=== PATIENT | female | born 1975 | race Caucasian/White ===

== ENCOUNTER 2017-09-15 11:59 | Inpatient (IN) | payer MEDICAID ==
[2017-09-15] MEDS ORDERED: Sodium Chloride 0.9% 10 ML Syringe FLUSH PRN (12:30)
[2017-09-15] MEDS ORDERED: Sodium Chloride 0.9% 1,000 ML IV ONE ×2 (12:30→13:54)
--- NOTE | 2017-09-15 12:45 | EDM.PDOC ---
ED HPI GENERAL MEDICAL PROBLEM - General Chief Complaint: Chest Pain Stated Complaint: DIZZY/CHEST PAIN Time Seen by Provider: 09/15/17 12:22 Source of Information: Reports: Patient History Limitations: Reports: No Limitations - History of Present Illness INITIAL COMMENTS - FREE TEXT/NARRATIVE: 41-year-old female presents for evaluation and treatment of chest pain and shortness of breath. Patient reports her symptoms have been present for the last 2 days. She appreciates that they worsen with movement. Currently at rest she states her pain is now 1 out of 10. Is located in the center of her chest. No radiation up into her neck and into her back. She states that she has a hard time breathing. That also seems to be worse with movement. She also reports a cough but no hemoptysis. She has appreciated some cramping in her calves recently. She also feels dizzy and lightheaded but has not had any syncopal episodes. In addition she also has felt feverish but has not taken her temperature she's had headaches feeling nauseous and has vomited. No vomiting today. Patient in the ICU at [facility] in the ICU 2 weeks ago with what sounds be urosepsis due to kidney stone. She is managed by Dr. Burciaga. She is not currently on any antibiotics. She states she did have surgery to break up the stone but reports they were unsure if they've removed the stone completely. She does have some back pain and some flank pain. She did see Dr. Kirby about one week ago for hospitalization follow-up. Patient is not on any blood thinners. Patient denies any cardiac history. Chest Pain Score (Numeric/FACES): 10 - Related Data Allergies Allergy/AdvReac Type Severity Reaction Status Date / Time Penicillins Allergy Anaphylactic Verified 09/15/17 16:38 Shock Home Meds: Home Meds FLUoxetine HCl [Fluoxetine HCl] 60 mg PO DAILY 09/15/17 [History] busPIRone [Buspar] 10 mg PO 09/15/17 [History] hydrOXYzine HCl [Atarax] 25 mg PO DAILY 09/15/17 [History] Past Medical History - Past Health History Medical/Surgical History: Denies Medical/Surgical History Other HEENT History: wears glasses and contacts Cardiovascular History: Reports: Heart Murmur Gastrointestinal History: Reports: None Genitourinary History: Reports: Renal Calculus 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: Reports: Musculoskeletal History: Reports: RA Neurological History: Reports: Migraines Psychiatric History: Reports: Addiction, Anxiety, Depression - Past Surgical History HEENT Surgical History: Reports: Tonsillectomy Cardiovascular Surgical History: Reports: None Female Surgical History: Reports: Kidney stone extraction Musculoskeletal Surgical History: Reports: None Social & Family History - Family History Family Medical History: Noncontributory - Tobacco Use Smoking Status *Q: Never Smoker Years of Tobacco use: 15 Packs/Tins Daily: 1 - Caffeine Use Caffeine Use: Reports: Soda - Alcohol Use Days Per Week of Alcohol Use: 7 Number of Drinks Per Day: 2 Total Drinks Per Week: 14 - Recreational Drug Use Recreational Drug Use: No ED ROS GENERAL - Review of Systems Review Of Systems: See Below Constitutional: Reports: Fever, Chills Respiratory: Reports: Shortness of Breath Cardiovascular: Reports: Chest Pain GI/Abdominal: Reports: Nausea, Vomiting Musculoskeletal: Denies: Neck Pain, Back Pain Neurological: Reports: Headache. Denies: Syncope ED EXAM, GENERAL - Physical Exam Exam: See Below Exam Limited By: No Limitations General Appearance: Alert, WD/WN, No Apparent Distress Eye Exam: Bilateral Eye: Normal Inspection Ears: Normal External Exam Nose: Normal Inspection Throat/Mouth: Normal Inspection, Normal Voice, No Airway Compromise Respiratory/Chest: No Respiratory Distress, Lungs Clear, Normal Breath Sounds Cardiovascular: Normal Peripheral Pulses, Regular Rate, Rhythm, No Murmur GI/Abdominal: Normal Bowel Sounds, Soft, Non-Tender Neurological: Alert, Oriented, Normal Cognition Psychiatric: Normal Affect, Normal Mood Skin Exam: Warm, Dry, Normal Color EKG INTERPRETATION EKG Date: 09/15/17 Time: 12:10 Rhythm: NSR Rate (Beats/Min): 97 [place]: Normal P-Wave: Present QRS: Normal ST-T: Depressed (slight, AVF and anterior leads) QT: Prolonged (QTc 590) EKG Interpretation Comments: Normal sinus rhythm at [address] depression in aVF in the anterior leads. Prolonged QT at QTC 590. Reviewed by myself and Dr. Lackey. Course - Vital Signs Last Recorded V/S: Last Vital Signs Temp 37.0 C 09/15/17 16:59 Pulse 78 09/15/17 16:59 Resp 14 09/15/17 16:59 BP 103/73 09/15/17 16:59 Pulse Ox 100 09/15/17 16:59 - Orders/Labs/Meds Orders: Active Orders 24 hr Category Date Time Status Cardiac Monitoring [RC] . DIRECTED Care 09/15/17 12:30 Active CULTURE BLOOD [BC] Stat Lab 09/15/17 12:50 Received CULTURE BLOOD [BC] Stat Lab 09/15/17 13:00 Received CULTURE URINE [RM] Stat Lab 09/15/17 13:20 Ordered UA W/MICROSCOPIC [URIN] Stat Lab 09/15/17 13:20 Ordered Sodium Chloride 0.9% [Saline Flush] Med 09/15/17 12:30 Active 10 ml FLUSH ASDIRECTED PRN Blood Culture x2 Reflex Set [OM.PC] Stat Oth 09/15/17 12:30 Ordered Peripheral IV Insertion Adult [OM.PC] Routine Oth 09/15/17 12:29 Ordered EKG 12 Lead [EK] Stat Ther 09/15/17 12:30 Ordered Medication Orders Acetaminophen (Tylenol) 650 mg PO Q4H PRN PRN Reason: Pain (Mild 1-3)/fever Hydrocodone Bitart/Acetaminophen ([place] 325-5 Mg) 1 tab PO Q4H PRN PRN Reason: Pain (moderate 4-6) Albuterol/Ipratropium (Duoneb 3.0-0.5 Mg/3 Ml) 3 ml NEB Q4H PRN PRN Reason: Shortness Of Breath/wheezing Fluoxetine HCl (Prozac) 60 mg PO DAILY [facility] Hydralazine HCl (Apresoline) 20 mg IVPUSH Q4H PRN PRN Reason: Hypertension Hydromorphone HCl (Dilaudid) 0.25 mg IVPUSH Q2H PRN PRN Reason: Pain (severe 7-10) Hydroxyzine HCl (Atarax) 25 mg PO DAILY U[facility] Promethazine HCl 12.5 mg/ (Sodium Chloride) 50.5 mls @ 100 mls/hr IV Q6H PRN PRN Reason: Nausea/Vomiting Sodium Chloride (Normal Saline) 500 mls @ 50 mls/hr IV ONETIME ONE Stop: 09/16/17 06:50 Last Admin: 09/15/17 21:07 Dose: 50 mls/hr Sodium Chloride (Normal Saline) 1,000 mls @ 100 mls/hr IV ASDIRECTED UMER Lorazepam (Ativan) 2 mg IVPUSH Q4H PRN PRN Reason: Seizures Lorazepam (Ativan) 1 mg IV Q6H PRN PRN Reason: Anxiety Magnesium Sulfate (Pharmacy To Dose - Magnesium Replacement) 1 dose .XX ASDIRECTED [facility] Metoprolol Tartrate (Lopressor) 5 mg IVPUSH Q4H PRN PRN Reason: Tachycardia Ondansetron HCl (Zofran) 4 mg IV Q6H PRN PRN Reason: Nausea/Vomiting Potassium Chloride (Pharmacy To Dose - Potassium Replacement) 1 dose .XX ASDIRECTED [facility] Sodium Chloride (Saline Flush) 10 ml FLUSH ASDIRECTED PRN PRN Reason: Keep Vein Open Last Admin: 09/15/17 12:45 Dose: 10 ml Temazepam (Restoril) 7.5 mg PO BEDTIME PRN PRN Reason: Sleep Labs: Laboratory Tests 09/15/17 09/15/17 09/15/17 Range/Units 12:20 12:20 12:20 WBC 10.87 H (3.98-10.04) K/mm3 RBC 4.66 (3.98-5.22) M/mm3 Hgb 14.5 (11.2-15.7) gm/L Hct 42.1 (34.1-44.9) % MCV 90.3 (79.4-94.8) fl MCH 31.1 (25.6-32.2) pg MCHC 34.4 (32.2-35.5) g/dl RDW Std Deviation 47.8 H (36.4-46.3) fL Plt Count 521 H (182-369) K/mm3 MPV 9.3 L (9.4-12.3) fl Neutrophils % (Manual) 66 H (40-60) % Band Neutrophils % 0 (0-10) % Lymphocytes % (Manual) 31 (20-40) % Atypical Lymphs % 0 % Monocytes % (Manual) 3 (2-10) % Eosinophils % (Manual) 0 L (0.7-5.8) % Basophils % (Manual) 0 L (0.1-1.2) Platelet Estimate See note RBC Morph Comment Normal PT 11.0 (9.5-12.1) SECONDS INR 1.01 APTT 26 (24-31) SECONDS D-Dimer, Quantitative (0.19-0.50) mg/L Sodium 131 L (136-145) mEq/L Potassium 2.3 L* (3.5-5.1) mEq/L Chloride 84 L (98-107) mEq/L Carbon Dioxide 38 H (21-32) mEq/L Anion Gap 11.3 (5-15) BUN 12 (7-18) mg/dL Creatinine 1.5 H (0.55-1.02) mg/dL Est Cr Clr Drug Dosing 36.87 mL/min Estimated GFR (MDRD) 38 (>60) mL/min BUN/Creatinine Ratio 8.0 L (14-18) Glucose 150 H (74-106) mg/dL Lactic Acid (0.4-2.0) mmol/L Calcium 9.1 (8.5-10.1) mg/dL Magnesium (1.8-2.4) mg/dl Total Bilirubin 1.4 H (0.2-1.0) mg/dL AST 46 H (15-37) U/L ALT 21 (14-59) U/L Alkaline Phosphatase 166 H (46-116) U/L Troponin I < 0.017 (0.00-0.056) ng/mL C-Reactive Protein (<1.0) mg/dL Total Protein 8.2 (6.4-8.2) g/dl Albumin 3.8 (3.4-5.0) g/dl Globulin 4.4 gm/dL Albumin/Globulin Ratio 0.9 L (1-2) Lipase 101 (73-393) U/L HCG, Quant mIU/mL Urine Color (Yellow) Urine Appearance (Clear) Urine pH (5.0-8.0) Ur Specific [place] (1.005-1.030) Urine Protein (Negative) Urine Glucose (UA) (Negative) Urine Ketones (Negative) Urine Occult Blood (Negative) Urine Nitrite (Negative) Urine Bilirubin (Negative) Urine Urobilinogen (0.2-1.0) Ur Leukocyte Esterase (Negative) Urine RBC (0-5) /hpf Urine WBC (0-5) /hpf Ur Epithelial Cells (0-5) /hpf Urine Bacteria (FEW) /hpf Hyaline Casts (0-5) /lpf Urine Mucus (FEW) /hpf Urine HCG, Qual Urine Opiates Screen (NEGATIVE) Ur Buprenorphine Scrn (NEGATIVE) Ur Oxycodone Screen (NEGATIVE) Urine Methadone Screen (NEGATIVE) Ur Propoxyphene Screen (NEGATIVE) Ur Barbiturates Screen (NEGATIVE) Ur Tricyclics Screen (NEGATIVE) Ur Phencyclidine Scrn (NEGATIVE) Ur Amphetamine Screen (NEGATIVE) U Methamphetamines Scrn (NEGATIVE) U Benzodiazepines Scrn (NEGATIVE) U Cocaine Metab Screen (NEGATIVE) U Marijuana (THC) Screen (NEGATIVE) 09/15/17 09/15/17 09/15/17 Range/Units 12:20 12:20 12:20 WBC (3.98-10.04) K/mm3 RBC (3.98-5.22) M/mm3 Hgb (11.2-15.7) gm/L Hct (34.1-44.9) % MCV (79.4-94.8) fl MCH (25.6-32.2) pg MCHC (32.2-35.5) g/dl RDW Std Deviation (36.4-46.3) fL Plt Count (182-369) K/mm3 MPV (9.4-12.3) fl Neutrophils % (Manual) (40-60) % Band Neutrophils % (0-10) % Lymphocytes % (Manual) (20-40) % Atypical Lymphs % % Monocytes % (Manual) (2-10) % Eosinophils % (Manual) (0.7-5.8) % Basophils % (Manual) (0.1-1.2) Platelet Estimate RBC Morph Comment PT (9.5-12.1) SECONDS INR APTT (24-31) SECONDS D-Dimer, Quantitative 0.33 (0.19-0.50) mg/L Sodium (136-145) mEq/L Potassium (3.5-5.1) mEq/L Chloride (98-107) mEq/L Carbon Dioxide (21-32) mEq/L Anion Gap (5-15) BUN (7-18) mg/dL Creatinine (0.55-1.02) mg/dL Est Cr Clr Drug Dosing mL/min Estimated GFR (MDRD) (>60) mL/min BUN/Creatinine Ratio (14-18) Glucose (74-106) mg/dL Lactic Acid (0.4-2.0) mmol/L Calcium (8.5-10.1) mg/dL Magnesium (1.8-2.4) mg/dl Total Bilirubin (0.2-1.0) mg/dL AST (15-37) U/L ALT (14-59) U/L Alkaline Phosphatase (46-116) U/L Troponin I (0.00-0.056) ng/mL C-Reactive Protein 0.8 (<1.0) mg/dL Total Protein (6.4-8.2) g/dl Albumin (3.4-5.0) g/dl Globulin gm/dL Albumin/Globulin Ratio (1-2) Lipase (73-393) U/L HCG, Quant 3.0 mIU/mL Urine Color (Yellow) Urine Appearance (Clear) Urine pH (5.0-8.0) Ur Specific [place] (1.005-1.030) Urine Protein (Negative) Urine Glucose (UA) (Negative) Urine Ketones (Negative) Urine Occult Blood (Negative) Urine Nitrite (Negative) Urine Bilirubin (Negative) Urine Urobilinogen (0.2-1.0) Ur Leukocyte Esterase (Negative) Urine RBC (0-5) /hpf Urine WBC (0-5) /hpf Ur Epithelial Cells (0-5) /hpf Urine Bacteria (FEW) /hpf Hyaline Casts (0-5) /lpf Urine Mucus (FEW) /hpf Urine HCG, Qual Urine Opiates Screen (NEGATIVE) Ur Buprenorphine Scrn (NEGATIVE) Ur Oxycodone Screen (NEGATIVE) Urine Methadone Screen (NEGATIVE) Ur Propoxyphene Screen (NEGATIVE) Ur Barbiturates Screen (NEGATIVE) Ur Tricyclics Screen (NEGATIVE) Ur Phencyclidine Scrn (NEGATIVE) Ur Amphetamine Screen (NEGATIVE) U Methamphetamines Scrn (NEGATIVE) U Benzodiazepines Scrn (NEGATIVE) U Cocaine Metab Screen (NEGATIVE) U Marijuana (THC) Screen (NEGATIVE) 09/15/17 09/15/17 09/15/17 Range/Units 12:47 12:50 13:20 WBC (3.98-10.04) K/mm3 RBC (3.98-5.22) M/mm3 Hgb (11.2-15.7) gm/L Hct (34.1-44.9) % MCV (79.4-94.8) fl MCH (25.6-32.2) pg MCHC (32.2-35.5) g/dl RDW Std Deviation (36.4-46.3) fL Plt Count (182-369) K/mm3 MPV (9.4-12.3) fl Neutrophils % (Manual) (40-60) % Band Neutrophils % (0-10) % Lymphocytes % (Manual) (20-40) % Atypical Lymphs % % Monocytes % (Manual) (2-10) % Eosinophils % (Manual) (0.7-5.8) % Basophils % (Manual) (0.1-1.2) Platelet Estimate RBC Morph Comment PT (9.5-12.1) SECONDS INR APTT (24-31) SECONDS D-Dimer, Quantitative (0.19-0.50) mg/L Sodium (136-145) mEq/L Potassium (3.5-5.1) mEq/L Chloride (98-107) mEq/L Carbon Dioxide (21-32) mEq/L Anion Gap (5-15) BUN (7-18) mg/dL Creatinine (0.55-1.02) mg/dL Est Cr Clr Drug Dosing mL/min Estimated GFR (MDRD) (>60) mL/min BUN/Creatinine Ratio (14-18) Glucose (74-106) mg/dL Lactic Acid 2.0 (0.4-2.0) mmol/L Calcium (8.5-10.1) mg/dL Magnesium 1.7 L (1.8-2.4) mg/dl Total Bilirubin (0.2-1.0) mg/dL AST (15-37) U/L ALT (14-59) U/L Alkaline Phosphatase (46-116) U/L Troponin I (0.00-0.056) ng/mL C-Reactive Protein (<1.0) mg/dL Total Protein (6.4-8.2) g/dl Albumin (3.4-5.0) g/dl Globulin gm/dL Albumin/Globulin Ratio (1-2) Lipase (73-393) U/L HCG, Quant mIU/mL Urine Color Dark yellow (Yellow) Urine Appearance Clear (Clear) Urine pH 8.0 (5.0-8.0) Ur Specific [place] 1.020 (1.005-1.030) Urine Protein 2+ H (Negative) Urine Glucose (UA) Negative (Negative) Urine Ketones Negative (Negative) Urine Occult Blood 3+ H (Negative) Urine Nitrite Negative (Negative) Urine Bilirubin Negative (Negative) Urine Urobilinogen 0.2 (0.2-1.0) Ur Leukocyte Esterase Trace H (Negative) Urine RBC 5-10 H (0-5) /hpf Urine WBC 0-5 (0-5) /hpf Ur Epithelial Cells 5-10 H (0-5) /hpf Urine Bacteria Few (FEW) /hpf Hyaline Casts 0-5 (0-5) /lpf Urine Mucus Few (FEW) /hpf Urine HCG, Qual Urine Opiates Screen (NEGATIVE) Ur Buprenorphine Scrn (NEGATIVE) Ur Oxycodone Screen (NEGATIVE) Urine Methadone Screen (NEGATIVE) Ur Propoxyphene Screen (NEGATIVE) Ur Barbiturates Screen (NEGATIVE) Ur Tricyclics Screen (NEGATIVE) Ur Phencyclidine Scrn (NEGATIVE) Ur Amphetamine Screen (NEGATIVE) U Methamphetamines Scrn (NEGATIVE) U Benzodiazepines Scrn (NEGATIVE) U Cocaine Metab Screen (NEGATIVE) U Marijuana (THC) Screen (NEGATIVE) 09/15/17 09/15/17 Range/Units 13:20 13:20 WBC (3.98-10.04) K/mm3 RBC (3.98-5.22) M/mm3 Hgb (11.2-15.7) gm/L Hct (34.1-44.9) % MCV (79.4-94.8) fl MCH (25.6-32.2) pg MCHC (32.2-35.5) g/dl RDW Std Deviation (36.4-46.3) fL Plt Count (182-369) K/mm3 MPV (9.4-12.3) fl Neutrophils % (Manual) (40-60) % Band Neutrophils % (0-10) % Lymphocytes % (Manual) (20-40) % Atypical Lymphs % % Monocytes % (Manual) (2-10) % Eosinophils % (Manual) (0.7-5.8) % Basophils % (Manual) (0.1-1.2) Platelet Estimate RBC Morph Comment PT (9.5-12.1) SECONDS INR APTT (24-31) SECONDS D-Dimer, Quantitative (0.19-0.50) mg/L Sodium (136-145) mEq/L Potassium (3.5-5.1) mEq/L Chloride (98-107) mEq/L Carbon Dioxide (21-32) mEq/L Anion Gap (5-15) BUN (7-18) mg/dL Creatinine (0.55-1.02) mg/dL Est Cr Clr Drug Dosing mL/min Estimated GFR (MDRD) (>60) mL/min BUN/Creatinine Ratio (14-18) Glucose (74-106) mg/dL Lactic Acid (0.4-2.0) mmol/L Calcium (8.5-10.1) mg/dL Magnesium (1.8-2.4) mg/dl Total Bilirubin (0.2-1.0) mg/dL AST (15-37) U/L ALT (14-59) U/L Alkaline Phosphatase (46-116) U/L Troponin I (0.00-0.056) ng/mL C-Reactive Protein (<1.0) mg/dL Total Protein (6.4-8.2) g/dl Albumin (3.4-5.0) g/dl Globulin gm/dL Albumin/Globulin Ratio (1-2) Lipase (73-393) U/L HCG, Quant mIU/mL Urine Color (Yellow) Urine Appearance (Clear) Urine pH (5.0-8.0) Ur Specific [place] (1.005-1.030) Urine Protein (Negative) Urine Glucose (UA) (Negative) Urine Ketones (Negative) Urine Occult Blood (Negative) Urine Nitrite (Negative) Urine Bilirubin (Negative) Urine Urobilinogen (0.2-1.0) Ur Leukocyte Esterase (Negative) Urine RBC (0-5) /hpf Urine WBC (0-5) /hpf Ur Epithelial Cells (0-5) /hpf Urine Bacteria (FEW) /hpf Hyaline Casts (0-5) /lpf Urine Mucus (FEW) /hpf Urine HCG, Qual Cancelled Urine Opiates Screen Negative (NEGATIVE) Ur Buprenorphine Scrn Negative (NEGATIVE) Ur Oxycodone Screen Negative (NEGATIVE) Urine Methadone Screen Negative (NEGATIVE) Ur Propoxyphene Screen Negative (NEGATIVE) Ur Barbiturates Screen Negative (NEGATIVE) Ur Tricyclics Screen Negative (NEGATIVE) Ur Phencyclidine Scrn Negative (NEGATIVE) Ur Amphetamine Screen Negative (NEGATIVE) U Methamphetamines Scrn Negative (NEGATIVE) U Benzodiazepines Scrn Presumptive positive H (NEGATIVE) U Cocaine Metab Screen Negative (NEGATIVE) U Marijuana (THC) Screen Negative (NEGATIVE) Meds: Medications Generic Name Dose Route Start Last Admin Trade Name Freq PRN Reason Stop Dose Admin Acetaminophen 650 mg 09/15/17 17:19 Tylenol PO Q4H PRN Pain (Mild 1-3)/fever Hydrocodone Bitart/Acetaminophen 1 tab 09/15/17 17:19 [place] 325-5 Mg PO Q4H PRN Pain (moderate 4-6) Albuterol/Ipratropium 3 ml 09/15/17 17:19 Duoneb 3.0-0.5 Mg/3 Ml NEB Q4H PRN Shortness Of Breath/wheezing Fluoxetine HCl 60 mg 09/16/17 09:00 Prozac PO DAILY [facility] Hydralazine HCl 20 mg 09/15/17 17:19 Apresoline IVPUSH Q4H PRN Hypertension Hydromorphone HCl 0.25 mg 09/15/17 17:19 Dilaudid IVPUSH Q2H PRN Pain (severe 7-10) Hydroxyzine HCl 25 mg 09/16/17 09:00 Atarax PO DAILY [facility] Promethazine HCl 12.5 mg/ 50.5 mls @ 100 mls/hr 09/15/17 17:19 Sodium Chloride IV Q6H PRN Nausea/Vomiting Sodium Chloride 500 mls @ 50 mls/hr 09/15/17 20:51 09/15/17 21:07 Normal Saline IV 09/16/17 06:50 50 mls/hr ONETIME ONE Administration Sodium Chloride 1,000 mls @ 100 mls/hr 09/16/17 07:00 Normal Saline IV ASDIRECTED [facility] Lorazepam 2 mg 09/15/17 17:19 Ativan IVPUSH Q4H PRN Seizures Lorazepam 1 mg 09/15/17 17:19 Ativan IV Q6H PRN Anxiety Magnesium Sulfate 1 dose 09/15/17 17:30 Pharmacy To Dose - Magnesium Replacement .XX ASDIRECTED [facility] Metoprolol Tartrate 5 mg 09/15/17 17:19 Lopressor IVPUSH Q4H PRN Tachycardia Ondansetron HCl 4 mg 09/15/17 17:19 Zofran IV Q6H PRN Nausea/Vomiting Potassium Chloride 1 dose 09/15/17 17:30 Pharmacy To Dose - Potassium Replacement .XX ASDIRECTED [facility] Sodium Chloride 10 ml 09/15/17 12:30 09/15/17 12:45 Saline Flush FLUSH 10 ml ASDIRECTED PRN Administration Keep Vein Open Temazepam 7.5 mg 09/15/17 17:19 Restoril PO BEDTIME PRN Sleep Discontinued Medications Generic Name Dose Route Start Last Admin Trade Name Freq PRN Reason Stop Dose Admin Sodium Chloride 1,000 mls @ 999 mls/hr 09/15/17 12:30 09/15/17 12:44 Normal Saline IV 09/15/17 13:30 999 mls/hr ONETIME ONE Administration Potassium Chloride 10 meq/ 100 mls @ 100 mls/hr 09/15/17 13:15 09/15/17 13:26 Premix IV 100 mls/hr ASDIRECTED [facility] Administration Sodium Chloride 1,000 mls @ 150 mls/hr 09/15/17 13:54 09/15/17 13:57 Normal Saline IV 09/15/17 20:33 150 mls/hr ONETIME ONE Administration Potassium Chloride 10 meq/ 100 mls @ 100 mls/hr 09/15/17 15:52 09/15/17 16:03 Premix IV 09/15/17 16:51 100 mls/hr NOW STA Administration Magnesium Sulfate 2 gm/ Premix 50 mls @ 25 mls/hr 09/15/17 16:34 09/15/17 18: 03 IV 09/15/17 18:33 25 mls/hr ONETIME ONE Administration Potassium Chloride 10 meq/ 100 mls @ 100 mls/hr 09/15/17 18:00 09/15/17 20:01 Premix IV 09/15/17 21:59 Not Given Q1H [facility] Potassium Chloride 10 meq/ 100 mls @ 100 mls/hr 09/15/17 20:00 09/15/17 23:24 Premix IV 09/15/17 23:59 100 mls/hr Q1H U[facility] Administration Potassium Chloride 40 meq 09/15/17 16:33 09/15/17 18:02 Klor-Con M20 PO 09/15/17 16:34 40 meq ONETIME ONE Administration Scopolamine 1.5 mg 09/15/17 17:24 09/15/17 20:00 Transderm-Scop TRDERM 09/15/17 17:25 Not Given Q72H ONE Scopolamine 1.5 mg 09/15/17 17:26 09/15/17 19:38 Transderm-Scop TOP 09/15/17 17:27 Not Given ONETIME ONE - Radiology Interpretation Free Text/Narrative:: Chest: Frontal view of the chest was obtained. Comparison: Prior chest x-ray of 12/13/14. Heart size and mediastinum are normal. Lungs are clear. Bony structures are unremarkable. Impression: 1. Nothing acute is seen on frontal chest x-ray. - Re-Assessments/Exams Free Text/Narrative Re-Assessment/Exam: 09/15/17 16:30 Patient's potassium is quite low at 2.3. She has received 10 mEq IV potassium and I did order her another 10 mEq. Given her prolonged QT in her low potassium and do not feel she is safe to go home. Discussed case with Dr. Perez, hospitalist talent acquisition specialist. He agrees to the admission. We'll admit for hypokalemia Departure - Departure Time of Disposition: 16:10 Disposition: Admitted As Inpatient 65 Condition: Fair Clinical Impression: Hypokalemia, Prolonged Q-T interval on ECG - My Orders Last 24 Hours: My Active Orders 09/15/17 12:29 Peripheral IV Insertion Adult [OM.PC] Routine 09/15/17 12:30 Cardiac Monitoring [RC] . DIRECTED Sodium Chloride 0.9% [Saline Flush] 10 ml FLUSH ASDIRECTED PRN Blood Culture x2 Reflex Set [OM.PC] Stat EKG 12 Lead [EK] Stat 09/15/17 12:50 CULTURE BLOOD [BC] Stat 09/15/17 13:00 CULTURE BLOOD [BC] Stat 09/15/17 13:20 CULTURE URINE [RM] Stat UA W/MICROSCOPIC [URIN] Stat - Assessment/Plan Last 24 Hours: My Active Orders 09/15/17 12:29 Peripheral IV Insertion Adult [OM.PC] Routine 09/15/17 12:30 Cardiac Monitoring [RC] . DIRECTED Sodium Chloride 0.9% [Saline Flush] 10 ml FLUSH ASDIRECTED PRN Blood Culture x2 Reflex Set [OM.PC] Stat EKG 12 Lead [EK] Stat 09/15/17 12:50 CULTURE BLOOD [BC] Stat 09/15/17 13:00 CULTURE BLOOD [BC] Stat 09/15/17 13:20 CULTURE URINE [RM] Stat UA W/MICROSCOPIC [URIN] Stat
[2017-09-15] MEDS ORDERED: Potassium Chloride 10 MEQ in Premix Bag 1 BAG IV SCH (13:15)
--- NOTE | 2017-09-15 13:39 | CR ---
Chest: Frontal view of the chest was obtained. Comparison: Prior chest x-ray of 12/13/14. Heart size and mediastinum are normal. Lungs are clear. Bony structures are unremarkable. Impression: 1. Nothing acute is seen on frontal chest x-ray. Diagnostic code #1
[2017-09-15] MEDS ORDERED: Potassium Chloride 10 MEQ in Premix Bag 1 BAG IV STA (15:52)
[2017-09-15] MEDS ORDERED: Potassium Chloride 20 MEQ Tab.ER PO ONE (16:33)
[2017-09-15] MEDS ORDERED: Magnesium Sulfate/Water 2 GM in Premix Bag 1 BAG IV ONE (16:34)
[2017-09-15] MEDS ORDERED: HYDROmorphone 0.5 MG/0.5 ML SYRINGE IVPUSH PRN (17:19)
[2017-09-15] MEDS ORDERED: Ondansetron 4 MG/2 ML SDV IV PRN (17:19)
[2017-09-15] MEDS ORDERED: Albuterol/Ipratropium 3.0-0.5 MG/3 ML Neb Soln NEB PRN (17:19)
[2017-09-15] MEDS ORDERED: Acetaminophen/HYDROcodone 325-5 MG Tab PO PRN (17:19)
[2017-09-15] MEDS ORDERED: Metoprolol Tartrate 5 MG/5 ML SDV IVPUSH PRN (17:19)
[2017-09-15] MEDS ORDERED: hydrALAZINE 20 MG/ML SDV IVPUSH PRN (17:19)
[2017-09-15] MEDS ORDERED: LORazepam 2 MG/ML SDV IV PRN (17:19)
[2017-09-15] MEDS ORDERED: Temazepam 7.5 MG Cap PO PRN (17:19)
[2017-09-15] MEDS ORDERED: LORazepam 2 MG/ML SDV IVPUSH PRN (17:19)
[2017-09-15] MEDS ORDERED: Promethazine 12.5 MG in Sodium Chloride 0.9% 50 ML IV PRN (17:19)
[2017-09-15] MEDS ORDERED: Acetaminophen 325 MG Tab PO PRN (17:19)
[2017-09-15] MEDS ORDERED: Scopolamine 1.5 MG Transdermal Patch TRDERM ONE (17:24)
[2017-09-15] MEDS ORDERED: Scopolamine 1.5 MG Transdermal Patch TOP ONE (17:26)
--- NOTE | 2017-09-15 17:32 | PCM.HP ---
H&P History of Present Illness - General Date of Service: 09/15/17 Admit Problem/Dx: Admission Diagnosis/Problem Admission Diagnosis/Problem Hypokalemia Source of Information: Patient, Old Records, Provider, RN Notes Reviewed History Limitations: Reports: No Limitations - History of Present Illness Initial Comments - Free Text/Narative: This is a 41 yo white female with past medical hx/o Hx/o Renal Stones S/p Stent Placement; removed recently, RA,Migraines, Hx/o ETOH Abuse, Anxiety and Depression who comes in for evaluation of chest pain and shortness of breath that started a couple of days ago. Her pain is localized mid thorax w/o radiation. Her c/o is associated with fever, chills, dizziness, lightheadedness but no near syncopal episode. Patient reports having GI emesis and watery diarrhea. She denies any sick contact, travel outside the country, no outdoor activities, unusual diet or drink. She has been hydrating with pedialyte. Her intake was not good and her has regular meal was about 2-3 days ago. Her initial work up in ED shows a CBC remarkable for WBC of 10.87, RDW of 47.8, Platelet count of 521, MVP of 9.3, and Neutrophils of 66%. Her chemistry is significant for Na of 131, K of 2.3, Cl of 84, CO2 of 38, Cr of 1.5, BS of 150, Mg of 1.4, AST of 46, and Alk Phos of 166. UDS is not impressive for UTI. Patient is being admitted for gastroenteriti sand electrolytes abnormality. Chest Pain Score (Numeric/FACES): 10 - Related Data Allergies/Adverse Reactions: Allergies Allergy/AdvReac Type Severity Reaction Status Date / Time Penicillins Allergy Anaphylactic Verified 09/15/17 16:38 Shock Home Medications: Home Meds FLUoxetine HCl [Fluoxetine HCl] 60 mg PO DAILY 09/15/17 [History] busPIRone [Buspar] 10 mg PO 09/15/17 [History] hydrOXYzine HCl [Atarax] 25 mg PO DAILY 09/15/17 [History] Past Medical History - Past Health History Medical/Surgical History: Denies Medical/Surgical History Other HEENT History: wears glasses and contacts Cardiovascular History: Reports: Heart Murmur Gastrointestinal History: Reports: None Genitourinary History: Reports: Renal Calculus OB NURSE History: Reports: Musculoskeletal History: Reports: RA Neurological History: Reports: Migraines Psychiatric History: Reports: Addiction, Anxiety, Depression - Past Surgical History HEENT Surgical History: Reports: Tonsillectomy Cardiovascular Surgical History: Reports: None Female Surgical History: Reports: Kidney stone extraction Musculoskeletal Surgical History: Reports: None Social & Family History - Family History Family Medical History: Noncontributory - Tobacco Use Smoking Status *Q: Never Smoker Years of Tobacco use: 15 Packs/Tins Daily: 1 - Caffeine Use Caffeine Use: Reports: Soda - Alcohol Use Days Per Week of Alcohol Use: 7 Number of Drinks Per Day: 2 Total Drinks Per Week: 14 - Recreational Drug Use Recreational Drug Use: No H&P Review of Systems - Review of Systems: Review Of Systems: See Below General: Reports: Fever, Decreased Appetite. Denies: Chills, Malaise, Weakness , Fatigue, Night Sweats HEENT: Reports: No Symptoms Pulmonary: Reports: Shortness of Breath. Denies: Wheezing, Pleuritic Chest Pain Cardiovascular: Reports: Chest Pain, Lightheadedness. Denies: Palpitations, Dyspnea on Exertion, Orthopnea, Syncope, Claudication, Blood Pressure Problem Gastrointestinal: Reports: No Symptoms, Diarrhea, Nausea, Vomiting. Denies: Abdominal Pain Genitourinary: Reports: No Symptoms Musculoskeletal: Reports: No Symptoms Skin: Denies: Cyanosis, Jaundice, Mottled, Pallor, Diaphoresis, Rash Psychiatric: Denies: Depression, Anxiety, Hallucinations, Suicidal Ideation, Homicidal Ideation Neurological: Denies: Confusion, Trouble Speaking, Difficulty Walking, Gait Disturbance Hematologic/Lymphatic: Denies: No Symptoms Immunologic: Denies: No Symptoms Exam - Exam Exam: See Below - Vital Signs Vital Signs: Last Vital Signs Temp 36.5 C 09/15/17 12:17 Pulse 104 H 09/15/17 12:17 Resp 16 09/15/17 12:17 BP 114/85 09/15/17 12:17 Pulse Ox 97 09/15/17 12:17 Weight: 56.699 kg - Exam General: Alert, Oriented, Cooperative HEENT: Conjunctiva Clear, EACs Clear, EOMI, Hearing Intact, Mucosa Moist & [place] , Nares Patent, Normal Nasal Septum, Posterior Pharynx Clear, Pupils Equal, Pupils Reactive Neck: Supple, Trachea Midline, +2 Carotid Pulse wo Bruit Lungs: Clear to Auscultation, Normal Respiratory Effort Cardiovascular: Regular Rate, Regular Rhythm GI/Abdominal Exam: Normal Bowel Sounds, Soft, Non-Tender, No Organomegaly, No Distention, No Abnormal Bruit, No Mass (Female) Exam: Deferred Rectal (Female) Exam: Deferred Back Exam: Normal Inspection, Full Range of Motion. No: Muscle Spasm, Vertebral Tenderness Extremities: Normal Inspection, Normal Range of Motion, Non-Tender, No Pedal Edema, Normal Capillary Refill Peripheral Pulses: 3+: Posterior Tibial (L), Posterior Tibial (R), Dorsalis Pedis (L), Dorsalis Pedis (R) Skin: Warm, Dry, Intact Neuro Extensive - Mental Status: Alert, Oriented x3, Normal Cognition, Memory Intact Neuro Extensive - Motor, Sensory, Reflexes: CN II-XII Intact, Normal Gait Psychiatric: Alert, Normal Affect, Normal Mood - Patient Data Lab Results Last 24 hrs: Laboratory Results - last 24 hr 09/15/17 09/15/17 09/15/17 Range/Units 12:20 12:20 12:20 WBC 10.87 H (3.98-10.04) K/mm3 RBC 4.66 (3.98-5.22) M/mm3 Hgb 14.5 (11.2-15.7) gm/L Hct 42.1 (34.1-44.9) % MCV 90.3 (79.4-94.8) fl MCH 31.1 (25.6-32.2) pg MCHC 34.4 (32.2-35.5) g/dl RDW Std Deviation 47.8 H (36.4-46.3) fL Plt Count 521 H (182-369) K/mm3 MPV 9.3 L (9.4-12.3) fl Neutrophils % (Manual) 66 H (40-60) % Band Neutrophils % 0 (0-10) % Lymphocytes % (Manual) 31 (20-40) % Atypical Lymphs % 0 % Monocytes % (Manual) 3 (2-10) % Eosinophils % (Manual) 0 L (0.7-5.8) % Basophils % (Manual) 0 L (0.1-1.2) Platelet Estimate See note RBC Morph Comment Normal PT 11.0 (9.5-12.1) SECONDS INR 1.01 APTT 26 (24-31) SECONDS D-Dimer, Quantitative (0.19-0.50) mg/L Sodium 131 L (136-145) mEq/L Potassium 2.3 L* (3.5-5.1) mEq/L Chloride 84 L (98-107) mEq/L Carbon Dioxide 38 H (21-32) mEq/L Anion Gap 11.3 (5-15) BUN 12 (7-18) mg/dL Creatinine 1.5 H (0.55-1.02) mg/dL Est Cr Clr Drug Dosing 36.87 mL/min Estimated GFR (MDRD) 38 (>60) mL/min BUN/Creatinine Ratio 8.0 L (14-18) Glucose 150 H (74-106) mg/dL Lactic Acid (0.4-2.0) mmol/L Calcium 9.1 (8.5-10.1) mg/dL Magnesium (1.8-2.4) mg/dl Total Bilirubin 1.4 H (0.2-1.0) mg/dL AST 46 H (15-37) U/L ALT 21 (14-59) U/L Alkaline Phosphatase 166 H (46-116) U/L Troponin I < 0.017 (0.00-0.056) ng/mL C-Reactive Protein (<1.0) mg/dL Total Protein 8.2 (6.4-8.2) g/dl Albumin 3.8 (3.4-5.0) g/dl Globulin 4.4 gm/dL Albumin/Globulin Ratio 0.9 L (1-2) Lipase 101 (73-393) U/L Urine Color (Yellow) Urine Appearance (Clear) Urine pH (5.0-8.0) Ur Specific [place] (1.005-1.030) Urine Protein (Negative) Urine Glucose (UA) (Negative) Urine Ketones (Negative) Urine Occult Blood (Negative) Urine Nitrite (Negative) Urine Bilirubin (Negative) Urine Urobilinogen (0.2-1.0) Ur Leukocyte Esterase (Negative) Urine RBC (0-5) /hpf Urine WBC (0-5) /hpf Ur Epithelial Cells (0-5) /hpf Urine Bacteria (FEW) /hpf Hyaline Casts (0-5) /lpf Urine Mucus (FEW) /hpf 09/15/17 09/15/17 09/15/17 Range/Units 12:20 12:20 12:47 WBC (3.98-10.04) K/mm3 RBC (3.98-5.22) M/mm3 Hgb (11.2-15.7) gm/L Hct (34.1-44.9) % MCV (79.4-94.8) fl MCH (25.6-32.2) pg MCHC (32.2-35.5) g/dl RDW Std Deviation (36.4-46.3) fL Plt Count (182-369) K/mm3 MPV (9.4-12.3) fl Neutrophils % (Manual) (40-60) % Band Neutrophils % (0-10) % Lymphocytes % (Manual) (20-40) % Atypical Lymphs % % Monocytes % (Manual) (2-10) % Eosinophils % (Manual) (0.7-5.8) % Basophils % (Manual) (0.1-1.2) Platelet Estimate RBC Morph Comment PT (9.5-12.1) SECONDS INR APTT (24-31) SECONDS D-Dimer, Quantitative 0.33 (0.19-0.50) mg/L Sodium (136-145) mEq/L Potassium (3.5-5.1) mEq/L Chloride (98-107) mEq/L Carbon Dioxide (21-32) mEq/L Anion Gap (5-15) BUN (7-18) mg/dL Creatinine (0.55-1.02) mg/dL Est Cr Clr Drug Dosing mL/min Estimated GFR (MDRD) (>60) mL/min BUN/Creatinine Ratio (14-18) Glucose (74-106) mg/dL Lactic Acid (0.4-2.0) mmol/L Calcium (8.5-10.1) mg/dL Magnesium 1.7 L (1.8-2.4) mg/dl Total Bilirubin (0.2-1.0) mg/dL AST (15-37) U/L ALT (14-59) U/L Alkaline Phosphatase (46-116) U/L Troponin I (0.00-0.056) ng/mL C-Reactive Protein 0.8 (<1.0) mg/dL Total Protein (6.4-8.2) g/dl Albumin (3.4-5.0) g/dl Globulin gm/dL Albumin/Globulin Ratio (1-2) Lipase (73-393) U/L Urine Color (Yellow) Urine Appearance (Clear) Urine pH (5.0-8.0) Ur Specific [place] (1.005-1.030) Urine Protein (Negative) Urine Glucose (UA) (Negative) Urine Ketones (Negative) Urine Occult Blood (Negative) Urine Nitrite (Negative) Urine Bilirubin (Negative) Urine Urobilinogen (0.2-1.0) Ur Leukocyte Esterase (Negative) Urine RBC (0-5) /hpf Urine WBC (0-5) /hpf Ur Epithelial Cells (0-5) /hpf Urine Bacteria (FEW) /hpf Hyaline Casts (0-5) /lpf Urine Mucus (FEW) /hpf 09/15/17 09/15/17 Range/Units 12:50 13:20 WBC (3.98-10.04) K/mm3 RBC (3.98-5.22) M/mm3 Hgb (11.2-15.7) gm/L Hct (34.1-44.9) % MCV (79.4-94.8) fl MCH (25.6-32.2) pg MCHC (32.2-35.5) g/dl RDW Std Deviation (36.4-46.3) fL Plt Count (182-369) K/mm3 MPV (9.4-12.3) fl Neutrophils % (Manual) (40-60) % Band Neutrophils % (0-10) % Lymphocytes % (Manual) (20-40) % Atypical Lymphs % % Monocytes % (Manual) (2-10) % Eosinophils % (Manual) (0.7-5.8) % Basophils % (Manual) (0.1-1.2) Platelet Estimate RBC Morph Comment PT (9.5-12.1) SECONDS INR APTT (24-31) SECONDS D-Dimer, Quantitative (0.19-0.50) mg/L Sodium (136-145) mEq/L Potassium (3.5-5.1) mEq/L Chloride (98-107) mEq/L Carbon Dioxide (21-32) mEq/L Anion Gap (5-15) BUN (7-18) mg/dL Creatinine (0.55-1.02) mg/dL Est Cr Clr Drug Dosing mL/min Estimated GFR (MDRD) (>60) mL/min BUN/Creatinine Ratio (14-18) Glucose (74-106) mg/dL Lactic Acid 2.0 (0.4-2.0) mmol/L Calcium (8.5-10.1) mg/dL Magnesium (1.8-2.4) mg/dl Total Bilirubin (0.2-1.0) mg/dL AST (15-37) U/L ALT (14-59) U/L Alkaline Phosphatase (46-116) U/L Troponin I (0.00-0.056) ng/mL C-Reactive Protein (<1.0) mg/dL Total Protein (6.4-8.2) g/dl Albumin (3.4-5.0) g/dl Globulin gm/dL Albumin/Globulin Ratio (1-2) Lipase (73-393) U/L Urine Color Dark yellow (Yellow) Urine Appearance Clear (Clear) Urine pH 8.0 (5.0-8.0) Ur Specific [place] 1.020 (1.005-1.030) Urine Protein 2+ H (Negative) Urine Glucose (UA) Negative (Negative) Urine Ketones Negative (Negative) Urine Occult Blood 3+ H (Negative) Urine Nitrite Negative (Negative) Urine Bilirubin Negative (Negative) Urine Urobilinogen 0.2 (0.2-1.0) Ur Leukocyte Esterase Trace H (Negative) Urine RBC 5-10 H (0-5) /hpf Urine WBC 0-5 (0-5) /hpf Ur Epithelial Cells 5-10 H (0-5) /hpf Urine Bacteria Few (FEW) /hpf Hyaline Casts 0-5 (0-5) /lpf Urine Mucus Few (FEW) /hpf Result Diagrams: 09/16/17 06:10 09/16/17 06:10 Problem List Initiated/Reviewed/Updated: Yes Orders Last 24hrs: Active Orders 24 hr Category Date Time Status Patient Status [ADT] Routine ADT 09/15/17 16:39 Active Cardiac Monitoring [RC] . DIRECTED Care 09/15/17 12:30 Active Height and Weight [RC] DAILY Care 09/15/17 17:19 Active Intake and Output [RC] QSHIFT Care 09/15/17 17:20 Active Oxygen Therapy [RC] PRN Care 09/15/17 17:19 Active Peripheral IV Care [RC] . DIRECTED Care 09/15/17 12:30 Active RT Aerosol Therapy [RC] .PRN Care 09/15/17 17:21 Active Up ad [place] [RC] ASDIRECTED Care 09/15/17 17:19 Active VTE/DVT Education [RC] PER UNIT ROUTINE Care 09/15/17 17:19 Active Vital Signs [RC] Q4H Care 09/15/17 17:19 Active Clear Liquid Diet [DIET] Diet 09/15/17 Dinner Active BASIC METABOLIC PANEL,BMP [CHEM] AM Lab 09/16/17 05:11 Ordered BASIC METABOLIC PANEL,BMP [CHEM] AM Lab 09/17/17 05:11 Ordered BASIC METABOLIC PANEL,BMP [CHEM] AM Lab 09/18/17 05:11 Ordered BASIC METABOLIC PANEL,BMP [CHEM] AM Lab 09/19/17 05:11 Ordered C-REACTIVE PROTEIN [CHEM] AM Lab 09/16/17 05:11 Ordered C-REACTIVE PROTEIN [CHEM] AM Lab 09/17/17 05:11 Ordered C-REACTIVE PROTEIN [CHEM] AM Lab 09/18/17 05:11 Ordered C-REACTIVE PROTEIN [CHEM] AM Lab 09/19/17 05:11 Ordered C-REACTIVE PROTEIN [CHEM] Stat Lab 09/15/17 17:23 Ordered CBC WITH AUTO DIFF [HEME] AM Lab 09/16/17 05:11 Ordered CBC WITH AUTO DIFF [HEME] AM Lab 09/17/17 05:11 Ordered CBC WITH AUTO DIFF [HEME] AM Lab 09/18/17 05:11 Ordered CBC WITH AUTO DIFF [HEME] AM Lab 09/19/17 05:11 Ordered CULTURE BLOOD [BC] Stat Lab 09/15/17 12:50 Received CULTURE BLOOD [BC] Stat Lab 09/15/17 13:00 Received CULTURE URINE [RM] Stat Lab 09/15/17 13:20 Ordered DRUG SCREEN, URINE REFLEX [URCHEM] Stat Lab 09/15/17 16:32 Ordered MAGNESIUM [CHEM] AM Lab 09/16/17 05:11 Ordered MAGNESIUM [CHEM] AM Lab 09/17/17 05:11 Ordered MAGNESIUM [CHEM] AM Lab 09/18/17 05:11 Ordered MAGNESIUM [CHEM] AM Lab 09/19/17 05:11 Ordered UA W/MICROSCOPIC [URIN] Stat Lab 09/15/17 13:20 Ordered Acetaminophen [Tylenol] Med 09/15/17 17:19 Ordered 650 mg PO Q4H PRN Acetaminophen/HYDROcodone [[place] 325-5 MG] Med 09/15/17 17:19 Ordered 1 tab PO Q4H PRN Albuterol/Ipratropium [DuoNeb 3.0-0.5 MG/3 ML] Med 09/15/17 17:19 Ordered 3 ml NEB Q4H PRN HYDROmorphone [Dilaudid] Med 09/15/17 17:19 Ordered 0.25 mg IVPUSH Q2H PRN LORazepam [Ativan] Med 09/15/17 17:19 Ordered 1 mg IV Q6H PRN LORazepam [Ativan] Med 09/15/17 17:19 Ordered 2 mg IVPUSH Q4H PRN Magnesium Rep Pharmacy to Dose [Pharmacy to Dose - Med 09/15/17 17:30 Ordered Magnesium Replacement] 1 dose .XX ASDIRECTED Magnesium Sulfate/Water [Magnesium Sulfate 2 GM in Med 09/15/17 16:34 Active Water 50 ML] 2 gm Premix Bag 1 bag IV ONETIME Metoprolol Tartrate [Lopressor] Med 09/15/17 17:19 Ordered 5 mg IVPUSH Q4H PRN Ondansetron [Zofran] Med 09/15/17 17:19 Ordered 4 mg IV Q6H PRN Potassium Chloride [KCl 10 MEQ in Water 100 ML] 10 meq Med 09/15/17 13:15 Active Premix Bag 1 bag IV ASDIRECTED Potassium Rep Pharmacy to Dose [Pharmacy to Dose - Med 09/15/17 17:30 Ordered Potassium Replacement] 1 dose .XX ASDIRECTED Promethazine [Phenergan] 12.5 mg Med 09/15/17 17:19 Ordered Sodium Chloride 0.9% [Normal Saline] 50 ml IV Q6H Scopolamine [Transderm-Scop] Med 09/15/17 17:26 Once 1.5 mg TOP ONETIME ONE Scopolamine [Transderm-Scop] Med 09/15/17 17:24 Once 1.5 mg TRDERM Q72H ONE Sodium Chloride 0.9% [Normal Saline] 1,000 ml Med 09/15/17 13:54 Active IV ONETIME Sodium Chloride 0.9% [Saline Flush] Med 09/15/17 12:30 Active 10 ml FLUSH ASDIRECTED PRN Temazepam [Restoril] Med 09/15/17 17:19 Ordered 7.5 mg PO BEDTIME PRN hydrALAZINE [Apresoline] Med 09/15/17 17:19 Ordered 20 mg IVPUSH Q4H PRN Blood Culture x2 Reflex Set [OM.PC] Stat Oth 09/15/17 12:30 Ordered Peripheral IV Insertion Adult [OM.PC] Routine Oth 09/15/17 12:29 Ordered Sequential Compression Device [OM.PC] Per Unit Routine Oth 09/15/17 17:20 Ordered Resuscitation Status Routine Resus Stat 09/15/17 17:19 Ordered EKG 12 Lead [EK] Stat Ther 09/15/17 12:30 Ordered Medication Orders Acetaminophen (Tylenol) 650 mg PO Q4H PRN PRN Reason: Pain (Mild 1-3)/fever Hydrocodone Bitart/Acetaminophen ([place] 325-5 Mg) 1 tab PO Q4H PRN PRN Reason: Pain (moderate 4-6) Albuterol/Ipratropium (Duoneb 3.0-0.5 Mg/3 Ml) 3 ml NEB Q4H PRN PRN Reason: Shortness Of Breath/wheezing Hydralazine HCl (Apresoline) 20 mg IVPUSH Q4H PRN PRN Reason: Hypertension Hydromorphone HCl (Dilaudid) 0.25 mg IVPUSH Q2H PRN PRN Reason: Pain (severe 7-10) Potassium Chloride 10 meq/ (Premix) 100 mls @ 100 mls/hr IV ASDIRECTED [facility] Last Admin: 09/15/17 13:26 Dose: 100 mls/hr Sodium Chloride (Normal Saline) 1,000 mls @ 150 mls/hr IV ONETIME ONE Stop: 09/15/17 20:33 Last Admin: 09/15/17 13:57 Dose: 150 mls/hr Magnesium Sulfate 2 gm/ Premix 50 mls @ 25 mls/hr IV ONETIME ONE Stop: 09/15/17 18:33 Promethazine HCl 12.5 mg/ (Sodium Chloride) 50.5 mls @ 100 mls/hr IV Q6H PRN PRN Reason: Nausea/Vomiting Lorazepam (Ativan) 2 mg IVPUSH Q4H PRN PRN Reason: Seizures Lorazepam (Ativan) 1 mg IV Q6H PRN PRN Reason: Anxiety Magnesium Sulfate (Pharmacy To Dose - Magnesium Replacement) 1 dose .XX ASDIRECTED [facility] Metoprolol Tartrate (Lopressor) 5 mg IVPUSH Q4H PRN PRN Reason: Tachycardia Ondansetron HCl (Zofran) 4 mg IV Q6H PRN PRN Reason: Nausea/Vomiting Potassium Chloride (Pharmacy To Dose - Potassium Replacement) 1 dose .XX ASDIRECTED [facility] Scopolamine (Transderm-Scop) 1.5 mg TRDERM Q72H ONE Stop: 09/15/17 17:25 Scopolamine (Transderm-Scop) 1.5 mg TOP ONETIME ONE Stop: 09/15/17 17:27 Sodium Chloride (Saline Flush) 10 ml FLUSH ASDIRECTED PRN PRN Reason: Keep Vein Open Last Admin: 09/15/17 12:45 Dose: 10 ml Temazepam (Restoril) 7.5 mg PO BEDTIME PRN PRN Reason: Sleep Assessment/Plan Comment:: Assessment/Plan: Acute: Gastroenteritis - Food Poisoning vs Viral - Last regular meal about 2-3 days ago - No sick contact, recent travel outside the country, recent outdoor activities, unusual food or diet - No hx/o auto-immune disease - Treatment is supportive care E-lytes Abnormality - Hyponatremia - Na 131 - 2/2 GI Loss - Currently on IVF - Hypokalemia - K 2.3 - 2/2 GI Loss - Currently receiving IV and Oral Supplement - Hypomagnesemia - Mg level is 1.7 - 2/2 GI Loss - Currently on IV infusion supplement Dehydration - 2/2 GI loss - Cr 1.5 and Spec gravity 1.020 - Continue hydration QTc Prolongation - QTc 590 2/2 e-lytes abnormality - Repeat EKG in AM S/p Chest Pain - Unlikely Cardiac in etiology - Low CAD risk - Carries a hx/o panic attack and anxiety - Troponin x1 is negative Chronic: Hx/o Renal Stones S/p Stent Placement; removed recently RA Migraines Hx/o ETOH Abuse Anxiety Depression Hx/o Panic Attack Plan: Admit to the floor w/ Tele IV fluids Electrolyte supplements Serial troponin level UDS Resume Home Meds Routine AM Labs Repeat BMP tonight Clear liquid diet if asymptomatic DVT PPx: SCDs
[2017-09-15] MEDS: Potassium Chloride 10 MEQ in Premix Bag 1 BAG IV SCH ×5 (19:59→23:24)
[2017-09-15] MEDS ORDERED: Sodium Chloride 0.9% 500 ML IV ONE (20:51)
[2017-09-16] MEDS: Potassium Chloride 10 MEQ in Premix Bag 1 BAG IV SCH (01:01)
--- NOTE | 2017-09-16 06:53 | PCM.PN ---
- General Info Date of Service: 09/16/17 Admission Dx/Problem (Free Text): Admission Diagnosis/Problem Admission Diagnosis/Problem Hypokalemia Subjective Update: Follow Up Functional Status: Reports: Pain Controlled, Tolerating Diet, Ambulating, Urinating. Denies: New Symptoms - Review of Systems General: Denies: Fever, Weakness, Fatigue, Malaise, Chills HEENT: Reports: No Symptoms Pulmonary: Denies: Shortness of Breath Cardiovascular: Denies: Chest Pain, Palpitations, Dyspnea on Exertion, Lightheadedness Gastrointestinal: Reports: Flatus. Denies: Abdominal Pain, Constipation, Decreased Appetite, Diarrhea, Difficulty Swallowing, Hematochezia, Melena, Nausea, Vomiting Genitourinary: Reports: No Symptoms Musculoskeletal: Reports: No Symptoms Skin: Denies: Cyanosis, Jaundice, Mottled, Pallor, Diaphoresis, Rash Neurological: Denies: Confusion, Headache, Difficulty Walking, Weakness, Gait Disturbance Psychiatric: Denies: Depression, Anxiety, Agitation, Hallucinations Systems Review Comment:: No significant overnight or acute issues. She is doing relatively well. No complaints related to GI. Her K slightly improved to 2.8. Her BPs have been outstanding. She tolerated her diet yesterday. - Patient Data Vitals - Most Recent: Last Vital Signs Temp 37.0 C 09/15/17 16:59 Pulse 78 09/15/17 16:59 Resp 14 09/15/17 16:59 BP 103/73 09/15/17 16:59 Pulse Ox 100 09/15/17 16:59 Weight - Most Recent: 56.699 kg I&O - Last 24 Hours: Intake & Output 09/15/17 09/15/17 09/16/17 14:59 22:59 06:59 Intake Total 720 Balance 720 Lab Results Last 24 Hours: Laboratory Results - last 24 hr 09/15/17 09/15/17 09/15/17 Range/Units 12:20 12:20 12:20 WBC 10.87 H (3.98-10.04) K/mm3 RBC 4.66 (3.98-5.22) M/mm3 Hgb 14.5 (11.2-15.7) gm/L Hct 42.1 (34.1-44.9) % MCV 90.3 (79.4-94.8) fl MCH 31.1 (25.6-32.2) pg MCHC 34.4 (32.2-35.5) g/dl RDW Std Deviation 47.8 H (36.4-46.3) fL Plt Count 521 H (182-369) K/mm3 MPV 9.3 L (9.4-12.3) fl Neutrophils % (Manual) 66 H (40-60) % Band Neutrophils % 0 (0-10) % Lymphocytes % (Manual) 31 (20-40) % Atypical Lymphs % 0 % Monocytes % (Manual) 3 (2-10) % Eosinophils % (Manual) 0 L (0.7-5.8) % Basophils % (Manual) 0 L (0.1-1.2) Platelet Estimate See note RBC Morph Comment Normal PT 11.0 (9.5-12.1) SECONDS INR 1.01 APTT 26 (24-31) SECONDS D-Dimer, Quantitative (0.19-0.50) mg/L Sodium 131 L (136-145) mEq/L Potassium 2.3 L* (3.5-5.1) mEq/L Chloride 84 L (98-107) mEq/L Carbon Dioxide 38 H (21-32) mEq/L Anion Gap 11.3 (5-15) BUN 12 (7-18) mg/dL Creatinine 1.5 H (0.55-1.02) mg/dL Est Cr Clr Drug Dosing 36.87 mL/min Estimated GFR (MDRD) 38 (>60) mL/min BUN/Creatinine Ratio 8.0 L (14-18) Glucose 150 H (74-106) mg/dL Lactic Acid (0.4-2.0) mmol/L Calcium 9.1 (8.5-10.1) mg/dL Magnesium (1.8-2.4) mg/dl Total Bilirubin 1.4 H (0.2-1.0) mg/dL AST 46 H (15-37) U/L ALT 21 (14-59) U/L Alkaline Phosphatase 166 H (46-116) U/L Troponin I < 0.017 (0.00-0.056) ng/mL C-Reactive Protein (<1.0) mg/dL Total Protein 8.2 (6.4-8.2) g/dl Albumin 3.8 (3.4-5.0) g/dl Globulin 4.4 gm/dL Albumin/Globulin Ratio 0.9 L (1-2) Lipase 101 (73-393) U/L HCG, Quant mIU/mL Urine Color (Yellow) Urine Appearance (Clear) Urine pH (5.0-8.0) Ur Specific [place] (1.005-1.030) Urine Protein (Negative) Urine Glucose (UA) (Negative) Urine Ketones (Negative) Urine Occult Blood (Negative) Urine Nitrite (Negative) Urine Bilirubin (Negative) Urine Urobilinogen (0.2-1.0) Ur Leukocyte Esterase (Negative) Urine RBC (0-5) /hpf Urine WBC (0-5) /hpf Ur Epithelial Cells (0-5) /hpf Urine Bacteria (FEW) /hpf Hyaline Casts (0-5) /lpf Urine Mucus (FEW) /hpf Urine HCG, Qual Urine Opiates Screen (NEGATIVE) Ur Buprenorphine Scrn (NEGATIVE) Ur Oxycodone Screen (NEGATIVE) Urine Methadone Screen (NEGATIVE) Ur Propoxyphene Screen (NEGATIVE) Ur Barbiturates Screen (NEGATIVE) Ur Tricyclics Screen (NEGATIVE) Ur Phencyclidine Scrn (NEGATIVE) Ur Amphetamine Screen (NEGATIVE) U Methamphetamines Scrn (NEGATIVE) U Benzodiazepines Scrn (NEGATIVE) U Cocaine Metab Screen (NEGATIVE) U Marijuana (THC) Screen (NEGATIVE) 09/15/17 09/15/17 09/15/17 Range/Units 12:20 12:20 12:20 WBC (3.98-10.04) K/mm3 RBC (3.98-5.22) M/mm3 Hgb (11.2-15.7) gm/L Hct (34.1-44.9) % MCV (79.4-94.8) fl MCH (25.6-32.2) pg MCHC (32.2-35.5) g/dl RDW Std Deviation (36.4-46.3) fL Plt Count (182-369) K/mm3 MPV (9.4-12.3) fl Neutrophils % (Manual) (40-60) % Band Neutrophils % (0-10) % Lymphocytes % (Manual) (20-40) % Atypical Lymphs % % Monocytes % (Manual) (2-10) % Eosinophils % (Manual) (0.7-5.8) % Basophils % (Manual) (0.1-1.2) Platelet Estimate RBC Morph Comment PT (9.5-12.1) SECONDS INR APTT (24-31) SECONDS D-Dimer, Quantitative 0.33 (0.19-0.50) mg/L Sodium (136-145) mEq/L Potassium (3.5-5.1) mEq/L Chloride (98-107) mEq/L Carbon Dioxide (21-32) mEq/L Anion Gap (5-15) BUN (7-18) mg/dL Creatinine (0.55-1.02) mg/dL Est Cr Clr Drug Dosing mL/min Estimated GFR (MDRD) (>60) mL/min BUN/Creatinine Ratio (14-18) Glucose (74-106) mg/dL Lactic Acid (0.4-2.0) mmol/L Calcium (8.5-10.1) mg/dL Magnesium (1.8-2.4) mg/dl Total Bilirubin (0.2-1.0) mg/dL AST (15-37) U/L ALT (14-59) U/L Alkaline Phosphatase (46-116) U/L Troponin I (0.00-0.056) ng/mL C-Reactive Protein 0.8 (<1.0) mg/dL Total Protein (6.4-8.2) g/dl Albumin (3.4-5.0) g/dl Globulin gm/dL Albumin/Globulin Ratio (1-2) Lipase (73-393) U/L HCG, Quant 3.0 mIU/mL Urine Color (Yellow) Urine Appearance (Clear) Urine pH (5.0-8.0) Ur Specific [place] (1.005-1.030) Urine Protein (Negative) Urine Glucose (UA) (Negative) Urine Ketones (Negative) Urine Occult Blood (Negative) Urine Nitrite (Negative) Urine Bilirubin (Negative) Urine Urobilinogen (0.2-1.0) Ur Leukocyte Esterase (Negative) Urine RBC (0-5) /hpf Urine WBC (0-5) /hpf Ur Epithelial Cells (0-5) /hpf Urine Bacteria (FEW) /hpf Hyaline Casts (0-5) /lpf Urine Mucus (FEW) /hpf Urine HCG, Qual Urine Opiates Screen (NEGATIVE) Ur Buprenorphine Scrn (NEGATIVE) Ur Oxycodone Screen (NEGATIVE) Urine Methadone Screen (NEGATIVE) Ur Propoxyphene Screen (NEGATIVE) Ur Barbiturates Screen (NEGATIVE) Ur Tricyclics Screen (NEGATIVE) Ur Phencyclidine Scrn (NEGATIVE) Ur Amphetamine Screen (NEGATIVE) U Methamphetamines Scrn (NEGATIVE) U Benzodiazepines Scrn (NEGATIVE) U Cocaine Metab Screen (NEGATIVE) U Marijuana (THC) Screen (NEGATIVE) 09/15/17 09/15/17 09/15/17 Range/Units 12:47 12:50 13:20 WBC (3.98-10.04) K/mm3 RBC (3.98-5.22) M/mm3 Hgb (11.2-15.7) gm/L Hct (34.1-44.9) % MCV (79.4-94.8) fl MCH (25.6-32.2) pg MCHC (32.2-35.5) g/dl RDW Std Deviation (36.4-46.3) fL Plt Count (182-369) K/mm3 MPV (9.4-12.3) fl Neutrophils % (Manual) (40-60) % Band Neutrophils % (0-10) % Lymphocytes % (Manual) (20-40) % Atypical Lymphs % % Monocytes % (Manual) (2-10) % Eosinophils % (Manual) (0.7-5.8) % Basophils % (Manual) (0.1-1.2) Platelet Estimate RBC Morph Comment PT (9.5-12.1) SECONDS INR APTT (24-31) SECONDS D-Dimer, Quantitative (0.19-0.50) mg/L Sodium (136-145) mEq/L Potassium (3.5-5.1) mEq/L Chloride (98-107) mEq/L Carbon Dioxide (21-32) mEq/L Anion Gap (5-15) BUN (7-18) mg/dL Creatinine (0.55-1.02) mg/dL Est Cr Clr Drug Dosing mL/min Estimated GFR (MDRD) (>60) mL/min BUN/Creatinine Ratio (14-18) Glucose (74-106) mg/dL Lactic Acid 2.0 (0.4-2.0) mmol/L Calcium (8.5-10.1) mg/dL Magnesium 1.7 L (1.8-2.4) mg/dl Total Bilirubin (0.2-1.0) mg/dL AST (15-37) U/L ALT (14-59) U/L Alkaline Phosphatase (46-116) U/L Troponin I (0.00-0.056) ng/mL C-Reactive Protein (<1.0) mg/dL Total Protein (6.4-8.2) g/dl Albumin (3.4-5.0) g/dl Globulin gm/dL Albumin/Globulin Ratio (1-2) Lipase (73-393) U/L HCG, Quant mIU/mL Urine Color Dark yellow (Yellow) Urine Appearance Clear (Clear) Urine pH 8.0 (5.0-8.0) Ur Specific [place] 1.020 (1.005-1.030) Urine Protein 2+ H (Negative) Urine Glucose (UA) Negative (Negative) Urine Ketones Negative (Negative) Urine Occult Blood 3+ H (Negative) Urine Nitrite Negative (Negative) Urine Bilirubin Negative (Negative) Urine Urobilinogen 0.2 (0.2-1.0) Ur Leukocyte Esterase Trace H (Negative) Urine RBC 5-10 H (0-5) /hpf Urine WBC 0-5 (0-5) /hpf Ur Epithelial Cells 5-10 H (0-5) /hpf Urine Bacteria Few (FEW) /hpf Hyaline Casts 0-5 (0-5) /lpf Urine Mucus Few (FEW) /hpf Urine HCG, Qual Urine Opiates Screen (NEGATIVE) Ur Buprenorphine Scrn (NEGATIVE) Ur Oxycodone Screen (NEGATIVE) Urine Methadone Screen (NEGATIVE) Ur Propoxyphene Screen (NEGATIVE) Ur Barbiturates Screen (NEGATIVE) Ur Tricyclics Screen (NEGATIVE) Ur Phencyclidine Scrn (NEGATIVE) Ur Amphetamine Screen (NEGATIVE) U Methamphetamines Scrn (NEGATIVE) U Benzodiazepines Scrn (NEGATIVE) U Cocaine Metab Screen (NEGATIVE) U Marijuana (THC) Screen (NEGATIVE) 09/15/17 09/15/17 09/15/17 Range/Units 13:20 13:20 21:07 WBC (3.98-10.04) K/mm3 RBC (3.98-5.22) M/mm3 Hgb (11.2-15.7) gm/L Hct (34.1-44.9) % MCV (79.4-94.8) fl MCH (25.6-32.2) pg MCHC (32.2-35.5) g/dl RDW Std Deviation (36.4-46.3) fL Plt Count (182-369) K/mm3 MPV (9.4-12.3) fl Neutrophils % (Manual) (40-60) % Band Neutrophils % (0-10) % Lymphocytes % (Manual) (20-40) % Atypical Lymphs % % Monocytes % (Manual) (2-10) % Eosinophils % (Manual) (0.7-5.8) % Basophils % (Manual) (0.1-1.2) Platelet Estimate RBC Morph Comment PT (9.5-12.1) SECONDS INR APTT (24-31) SECONDS D-Dimer, Quantitative (0.19-0.50) mg/L Sodium 136 (136-145) mEq/L Potassium 2.4 L* (3.5-5.1) mEq/L Chloride 95 L (98-107) mEq/L Carbon Dioxide 36 H (21-32) mEq/L Anion Gap 7.4 (5-15) BUN 9 (7-18) mg/dL Creatinine 1.0 (0.55-1.02) mg/dL Est Cr Clr Drug Dosing 55.30 mL/min Estimated GFR (MDRD) > 60 (>60) mL/min BUN/Creatinine Ratio 9.0 L (14-18) Glucose 125 H (74-106) mg/dL Lactic Acid (0.4-2.0) mmol/L Calcium 8.1 L (8.5-10.1) mg/dL Magnesium 2.8 H (1.8-2.4) mg/dl Total Bilirubin (0.2-1.0) mg/dL AST (15-37) U/L ALT (14-59) U/L Alkaline Phosphatase (46-116) U/L Troponin I < 0.017 (0.00-0.056) ng/mL C-Reactive Protein (<1.0) mg/dL Total Protein (6.4-8.2) g/dl Albumin (3.4-5.0) g/dl Globulin gm/dL Albumin/Globulin Ratio (1-2) Lipase (73-393) U/L HCG, Quant mIU/mL Urine Color (Yellow) Urine Appearance (Clear) Urine pH (5.0-8.0) Ur Specific [place] (1.005-1.030) Urine Protein (Negative) Urine Glucose (UA) (Negative) Urine Ketones (Negative) Urine Occult Blood (Negative) Urine Nitrite (Negative) Urine Bilirubin (Negative) Urine Urobilinogen (0.2-1.0) Ur Leukocyte Esterase (Negative) Urine RBC (0-5) /hpf Urine WBC (0-5) /hpf Ur Epithelial Cells (0-5) /hpf Urine Bacteria (FEW) /hpf Hyaline Casts (0-5) /lpf Urine Mucus (FEW) /hpf Urine HCG, Qual Cancelled Urine Opiates Screen Negative (NEGATIVE) Ur Buprenorphine Scrn Negative (NEGATIVE) Ur Oxycodone Screen Negative (NEGATIVE) Urine Methadone Screen Negative (NEGATIVE) Ur Propoxyphene Screen Negative (NEGATIVE) Ur Barbiturates Screen Negative (NEGATIVE) Ur Tricyclics Screen Negative (NEGATIVE) Ur Phencyclidine Scrn Negative (NEGATIVE) Ur Amphetamine Screen Negative (NEGATIVE) U Methamphetamines Scrn Negative (NEGATIVE) U Benzodiazepines Scrn Presumptive positive H (NEGATIVE) U Cocaine Metab Screen Negative (NEGATIVE) U Marijuana (THC) Screen Negative (NEGATIVE) Med Orders - Current: Current Medications Acetaminophen (Tylenol) 650 mg PO Q4H PRN PRN Reason: Pain (Mild 1-3)/fever Hydrocodone Bitart/Acetaminophen ([place] 325-5 Mg) 1 tab PO Q4H PRN PRN Reason: Pain (moderate 4-6) Albuterol/Ipratropium (Duoneb 3.0-0.5 Mg/3 Ml) 3 ml NEB Q4H PRN PRN Reason: Shortness Of Breath/wheezing Fluoxetine HCl (Prozac) 60 mg PO DAILY UMER Hydralazine HCl (Apresoline) 20 mg IVPUSH Q4H PRN PRN Reason: Hypertension Hydromorphone HCl (Dilaudid) 0.25 mg IVPUSH Q2H PRN PRN Reason: Pain (severe 7-10) Hydroxyzine HCl (Atarax) 25 mg PO DAILY UMER Promethazine HCl 12.5 mg/ (Sodium Chloride) 50.5 mls @ 100 mls/hr IV Q6H PRN PRN Reason: Nausea/Vomiting Sodium Chloride (Normal Saline) 1,000 mls @ 100 mls/hr IV ASDIRECTED [facility] Lorazepam (Ativan) 2 mg IVPUSH Q4H PRN PRN Reason: Seizures Lorazepam (Ativan) 1 mg IV Q6H PRN PRN Reason: Anxiety Magnesium Sulfate (Pharmacy To Dose - Magnesium Replacement) 1 dose .XX ASDIRECTED [facility] Metoprolol Tartrate (Lopressor) 5 mg IVPUSH Q4H PRN PRN Reason: Tachycardia Ondansetron HCl (Zofran) 4 mg IV Q6H PRN PRN Reason: Nausea/Vomiting Potassium Chloride (Pharmacy To Dose - Potassium Replacement) 1 dose .XX ASDIRECTED [facility] Sodium Chloride (Saline Flush) 10 ml FLUSH ASDIRECTED PRN PRN Reason: Keep Vein Open Last Admin: 09/15/17 12:45 Dose: 10 ml Temazepam (Restoril) 7.5 mg PO BEDTIME PRN PRN Reason: Sleep Discontinued Medications Sodium Chloride (Normal Saline) 1,000 mls @ 999 mls/hr IV ONETIME ONE Stop: 09/15/17 13:30 Last Admin: 09/15/17 12:44 Dose: 999 mls/hr Potassium Chloride 10 meq/ (Premix) 100 mls @ 100 mls/hr IV ASDIRECTED [facility] Last Admin: 09/15/17 13:26 Dose: 100 mls/hr Sodium Chloride (Normal Saline) 1,000 mls @ 150 mls/hr IV ONETIME ONE Stop: 09/15/17 20:33 Last Admin: 09/15/17 13:57 Dose: 150 mls/hr Potassium Chloride 10 meq/ (Premix) 100 mls @ 100 mls/hr IV NOW STA Stop: 09/15/17 16:51 Last Admin: 09/15/17 16:03 Dose: 100 mls/hr Magnesium Sulfate 2 gm/ Premix 50 mls @ 25 mls/hr IV ONETIME ONE Stop: 09/15/17 18:33 Last Admin: 09/15/17 18:03 Dose: 25 mls/hr Potassium Chloride 10 meq/ (Premix) 100 mls @ 100 mls/hr IV Q1H UMER Stop: 09/15/17 21:59 Last Admin: 09/15/17 20:01 Dose: Not Given Potassium Chloride 10 meq/ (Premix) 100 mls @ 100 mls/hr IV Q1H UMER Stop: 09/15/17 23:59 Last Admin: 09/16/17 01:01 Dose: 100 mls/hr Sodium Chloride (Normal Saline) 500 mls @ 50 mls/hr IV ONETIME ONE Stop: 09/16/17 06:50 Last Admin: 09/15/17 21:07 Dose: 50 mls/hr Potassium Chloride (Klor-Con M20) 40 meq PO ONETIME ONE Stop: 09/15/17 16:34 Last Admin: 09/15/17 18:02 Dose: 40 meq Scopolamine (Transderm-Scop) 1.5 mg TRDERM Q72H ONE Stop: 09/15/17 17:25 Last Admin: 09/15/17 20:00 Dose: Not Given Scopolamine (Transderm-Scop) 1.5 mg TOP ONETIME ONE Stop: 09/15/17 17:27 Last Admin: 09/15/17 19:38 Dose: Not Given - Exam General: Alert, Oriented, Cooperative, No Acute Distress HEENT: Pupils Equal, Pupils Reactive, EOMI, Mucous Membr. Moist/[place] Neck: Supple, Trachea Midline, No JVD, No Thyromegaly Lungs: Clear to Auscultation, Normal Respiratory Effort Cardiovascular: Regular Rate, Regular Rhythm GI/Abdominal Exam: Normal Bowel Sounds, Soft, Non-Tender, No Organomegaly, No Distention, No Abnormal Bruit, No Mass (Female) Exam: Deferred Back Exam: Normal Inspection, Full Range of Motion Extremities: Normal Inspection, Normal Range of Motion, Non-Tender, No Pedal Edema, Normal Capillary Refill Peripheral Pulses: 3+: Posterior Tibial (L), Posterior Tibial (R), Dorsalis Pedis (L), Dorsalis Pedis (R) Skin: Warm, Dry, Intact Neurological: No New Focal Deficit Psy/Mental Status: Alert, Normal Affect, Normal Mood - Problem List Review Problem List Initiated/Reviewed/Updated: Yes - My Orders Last 24 Hours: My Active Orders 09/15/17 13:20 DRUG SCREEN, URINE [URCHEM] Routine 09/15/17 16:39 Patient Status [ADT] Routine 09/15/17 17:19 Height and Weight [RC] 04 Oxygen Therapy [RC] PRN Up ad [place] [RC] ASDIRECTED VTE/DVT Education [RC] 10,22 Vital Signs [RC] Q4HR Acetaminophen [Tylenol] 650 mg PO Q4H PRN Acetaminophen/HYDROcodone [[place] 325-5 MG] 1 tab PO Q4H PRN Albuterol/Ipratropium [DuoNeb 3.0-0.5 MG/3 ML] 3 ml NEB Q4H PRN HYDROmorphone [Dilaudid] 0.25 mg IVPUSH Q2H PRN LORazepam [Ativan] 1 mg IV Q6H PRN LORazepam [Ativan] 2 mg IVPUSH Q4H PRN Metoprolol Tartrate [Lopressor] 5 mg IVPUSH Q4H PRN Ondansetron [Zofran] 4 mg IV Q6H PRN Promethazine [Phenergan] 12.5 mg Sodium Chloride 0.9% [Normal Saline] 50 ml IV Q6H Temazepam [Restoril] 7.5 mg PO BEDTIME PRN hydrALAZINE [Apresoline] 20 mg IVPUSH Q4H PRN Resuscitation Status Routine 09/15/17 17:20 Intake and Output [RC] 04,16 Sequential Compression Device [OM.PC] Per Unit Routine 09/15/17 17:21 RT Aerosol Therapy [RC] .PRN 09/15/17 17:30 Magnesium Rep Pharmacy to Dose [Pharmacy to Dose - Magnesium Replacement] 1 dose .XX ASDIRECTED Potassium Rep Pharmacy to Dose [Pharmacy to Dose - Potassium Replacement] 1 dose .XX ASDIRECTED 09/15/17 20:45 busPIRone DOSE UNIT RTE FREQ 09/15/17 Dinner Clear Liquid Diet [DIET] 09/16/17 05:00 CRP [C-REACTIVE PROTEIN] [CHEM] Routine 09/16/17 05:11 BASIC METABOLIC PANEL,BMP [CHEM] AM C-REACTIVE PROTEIN [CHEM] AM CBC WITH AUTO DIFF [HEME] AM MAGNESIUM [CHEM] AM TROPONIN I [CHEM] AM 09/16/17 07:00 Sodium Chloride 0.9% [Normal Saline] 1,000 ml IV ASDIRECTED 09/16/17 09:00 FLUoxetine [PROzac] 60 mg PO DAILY hydrOXYzine HCl [Atarax] 25 mg PO DAILY 09/17/17 05:11 BASIC METABOLIC PANEL,BMP [CHEM] AM C-REACTIVE PROTEIN [CHEM] AM CBC WITH AUTO DIFF [HEME] AM MAGNESIUM [CHEM] AM 09/18/17 05:11 BASIC METABOLIC PANEL,BMP [CHEM] AM C-REACTIVE PROTEIN [CHEM] AM CBC WITH AUTO DIFF [HEME] AM MAGNESIUM [CHEM] AM 09/19/17 05:11 BASIC METABOLIC PANEL,BMP [CHEM] AM C-REACTIVE PROTEIN [CHEM] AM CBC WITH AUTO DIFF [HEME] AM MAGNESIUM [CHEM] AM - Plan Plan:: Assessment/Plan: Acute: Gastroenteritis, Improving - Food Poisoning vs Viral - Last regular meal about 2-3 days ago - No sick contact, recent travel outside the country, recent outdoor activities, unusual food or diet - No hx/o auto-immune disease - Treatment is supportive care - Advanced diet as tolerated QTc Prolongation - QTc 590 2/2 e-lytes abnormality - Repeat EKG this AM--> SR with improved QTC of 510 - Continue Tele and routine labs check Hypokalemia, Slightly improved - K 2.3--> 2.4 --> 2.8 this AM - 2/2 GI Loss - Was on IV but had some issues with infusion - Continue Oral Supplement Hypocalcemia, Slightly Worse - Ca+ 8.1 ---> 7.7 - 2/2 Inadequate intake - Replete and Monitor Resolved: S/p Hyponatremia - Na 131--> 136 - 2/2 GI Loss S/p Hypomagnesemia - Mg level is 1.7--> 2.1 - 2/2 GI Loss - S/p Dehydration - 2/2 GI loss - Cr 1.5 and Spec gravity 1.020 - Continue hydration S/p Chest Pain - Unlikely Cardiac in etiology - Low CAD risk - Carries a hx/o panic attack and anxiety - Troponin x 3 all negative Chronic: Hx/o Renal Stones S/p Stent Placement; removed recently RA Migraines Hx/o ETOH Abuse Anxiety Depression Hx/o Panic Attack Plan: She is clinically better Continue IV fluids and Electrolyte supplements UDS for Benzo Routine AM Labs Advance diet as tolerate: Soft and then regular meal (non-fatty and non-greasy meal) DVT PPx: SCDs
[2017-09-16] MEDS: Sodium Chloride 0.9% 1,000 ML IV SCH ×2 (07:47→18:35)
[2017-09-16] MEDS: Potassium Chloride 20 MEQ Tab.ER PO SCH ×3 (09:52→15:02)
[2017-09-16] MEDS: FLUoxetine 20 MG Cap PO SCH (09:53)
[2017-09-16] MEDS: hydrOXYzine HCl 25 MG Tab PO SCH (09:53)
[2017-09-16] MEDS: Calcium Carbonate 500 MG Tab.Chew PO SCH ×2 (09:53→20:32)
[2017-09-16] MEDS: busPIRone 5 MG Tab PO SCH ×2 (15:02→20:32)
[2017-09-17] MEDS: Sodium Chloride 0.9% 1,000 ML IV SCH (05:42)
[2017-09-17 07:57] VITALS: BP 103/65
[2017-09-17] MEDS ORDERED: Magnesium Oxide 400 MG Tab PO ONE (08:00)
[2017-09-17] MEDS: Calcium Carbonate 500 MG Tab.Chew PO SCH (08:27)
[2017-09-17] MEDS: hydrOXYzine HCl 25 MG Tab PO SCH (08:27)
[2017-09-17] MEDS: busPIRone 5 MG Tab PO SCH (08:27)
[2017-09-17] MEDS: FLUoxetine 20 MG Cap PO SCH (08:27)
--- NOTE | 2017-09-17 08:34 | PCM.DCSUM1 ---
Discharge Summary - Hospital Course Brief History: This is a 41 yo white female with past medical hx/o Hx/o Renal Stones S/p Stent Placement; removed recently, RA,Migraines, Hx/o ETOH Abuse, Anxiety and Depression who comes in for evaluation of chest pain and shortness of breath that started a couple of days ago. Her pain is localized mid thorax w/ o radiation. Her c/o is associated with fever, chills, dizziness, lightheadedness but no near syncopal episode. Patient reports having GI emesis and watery diarrhea. She denies any sick contact, travel outside the country, no outdoor activities, unusual diet or drink. She has been hydrating with pedialyte. Her intake was not good and her lasy regular meal was about 2-3 days ago. Her initial work up in ED shows a CBC remarkable for WBC of 10.87, RDW of 47.8, Platelet count of 521, MVP of 9.3, and Neutrophils of 66%. Her chemistry is significant for Na of 131, K of 2.3, Cl of 84, CO2 of 38, Cr of 1.5, BS of 150, Mg of 1.4, AST of 46, and Alk Phos of 166. UDS is not impressive for UTI. Patient is being admitted for gastroenteritis and electrolytes abnormality. - Discharge Data Discharge Date: 09/17/17 Discharge Disposition: Home, Self-Care 01 Condition: Good - Discharge Diagnosis/Problem(s) (1) Hypomagnesemia SNOMED Code(s): 243359155 ICD Code: E83.42 - HYPOMAGNESEMIA Status: Acute Current Visit: Yes (2) Hypocalcemia syndrome SNOMED Code(s): 5897700 ICD Code: E83.51 - HYPOCALCEMIA Status: Acute Current Visit: Yes (3) Gastroenteritis SNOMED Code(s): 55443216 ICD Code: K52.9 - NONINFECTIVE GASTROENTERITIS AND COLITIS, UNSPECIFIED Status: Resolved Current Visit: Yes (4) Hypokalemia SNOMED Code(s): 56713245 ICD Code: E87.6 - HYPOKALEMIA Status: Resolved Current Visit: Yes (5) Prolonged Q-T interval on ECG SNOMED Code(s): 414027270 ICD Code: R94.31 - ABNORMAL ELECTROCARDIOGRAM [ECG] [EKG] Status: Resolved Current Visit: Yes (6) Hyponatremia SNOMED Code(s): 53949265 ICD Code: E87.1 - HYPO-OSMOLALITY AND HYPONATREMIA Status: Resolved Current Visit: Yes (7) Dehydration SNOMED Code(s): 28479975 ICD Code: E86.0 - DEHYDRATION Status: Resolved Current Visit: Yes (8) Chest pain in adult SNOMED Code(s): 48070222 ICD Code: R07.9 - CHEST PAIN, UNSPECIFIED Status: Resolved Current Visit : Yes - Patient Summary/Data Operative Procedure(s) Performed: None Complications: None Consults: None Labs Pending at D/C: None Recommended Follow-up Testing/Procedures: None Planned Operative Procedure(s) after DC: None - Patient Instructions Diet: Usual Diet as Tolerated Activity: As Tolerated Driving: May Drive Today Showering/Bathing: May Shower Notify Provider of: Fever, Increased Pain, Nausea and/or Vomiting Other/Special Instructions: - Please resume all home medications as directed. - Call your family doctor (PCP) for any questions or concerns after discharge. - Follow up with PCP in 1-2 week as needed. - Come back or seek immediate care should your symptoms persist or get worse - Discharge Plan Home Medications: Home Meds FLUoxetine HCl [Fluoxetine HCl] 60 mg PO DAILY 09/15/17 [History] busPIRone [Buspar] 10 mg PO TID 09/15/17 [History] hydrOXYzine HCl [hydrOXYzine] 25 mg PO DAILY 09/15/17 [History] Acetaminophen/HYDROcodone [[place] 325-5 MG] 1 tab PO Q6H PRN 09/16/17 [History] Patient Handouts: Hyponatremia, Hypomagnesemia, Hypokalemia Referrals: Binu Burciaga MD [Primary Care Provider] - Jean-Pierre Nunez DO [Ordering Only Provider] - (Please schedule follow-up apointment with primary care provider within 1-2 weeks. ) - Discharge Summary/Plan Comment DC Time >30 min.: Yes (45 mins) Discharge Summary/Plan Comment: Discharge to Home - General Info Date of Service: 09/17/17 Admission Dx/Problem (Free Text: Admission Diagnosis/Problem Admission Diagnosis/Problem Hypokalemia Subjective Update: Follow Up Functional Status: Reports: Pain Controlled, Tolerating Diet, Ambulating, Urinating - Review of Systems General: Denies: Fever, Weakness, Fatigue, Malaise, Chills, Appetite HEENT: Reports: No Symptoms Pulmonary: Denies: Shortness of Breath, Cough, Sputum Cardiovascular: Denies: Chest Pain, Palpitations, Dyspnea on Exertion, Lightheadedness Gastrointestinal: Denies: Abdominal Pain, Constipation, Decreased Appetite, Diarrhea, Difficulty Swallowing, Nausea, Vomiting Genitourinary: Reports: No Symptoms Musculoskeletal: Reports: No Symptoms Skin: Denies: Cyanosis, Jaundice, Mottled, Pallor, Diaphoresis, Bruising, Rash Neurological: Denies: Confusion, Difficulty Walking, Weakness, Gait Disturbance Psychiatric: Denies: Depression, Anxiety, Hallucinations, Suicidal Ideation Systems Review Comment: No overnight or acute issues. She slept through the night. She feels good and has no complaints this morning. Her abnormal labs essentially resolved except for mild hypomagnesemia of 1.7 - Patient Data Vitals - Most Recent: Last Vital Signs Temp 36.7 C 09/17/17 07:28 Pulse 76 09/17/17 07:28 Resp 16 09/17/17 07:28 BP 103/65 09/17/17 07:28 Pulse Ox 99 09/17/17 07:28 Weight - Most Recent: 56.501 kg I&O - Last 24 hours: Intake & Output 09/16/17 09/17/17 09/17/17 22:59 06:59 14:59 Intake Total 2790 1700 285 Output Total 200 950 Balance 2590 750 285 Lab Results - Last 24 hrs: Laboratory Results - last 24 hr 09/16/17 09/17/17 09/17/17 Range/Units 20:45 06:25 06:25 WBC 9.21 (3.98-10.04) K/mm3 RBC 3.26 L (3.98-5.22) M/mm3 Hgb 10.3 L (11.2-15.7) gm/L Hct 32.4 L (34.1-44.9) % MCV 99.4 H (79.4-94.8) fl MCH 31.6 (25.6-32.2) pg MCHC 31.8 L (32.2-35.5) g/dl RDW Std Deviation 52.3 H (36.4-46.3) fL Plt Count 310 (182-369) K/mm3 MPV 9.3 L (9.4-12.3) fl Neut % (Auto) 53.6 (34.0-71.1) % Lymph % (Auto) 35.5 (19.3-51.7) % [place] % (Auto) 7.7 (4.7-12.5) % Eos % (Auto) 2.9 (0.7-5.8) Baso % (Auto) 0.2 (0.1-1.2) % Neut # (Auto) 4.93 (1.56-6.13) K/mm3 Lymph # (Auto) 3.27 (1.18-3.74) K/mm3 [place] # (Auto) 0.71 H (0.24-0.36) K/mm3 Eos # (Auto) 0.27 (0.04-0.36) K/mm3 Baso # (Auto) 0.02 (0.01-0.08) K/mm3 Sodium 135 L 137 (136-145) mEq/L Potassium 4.4 4.5 (3.5-5.1) mEq/L Chloride 104 109 H (98-107) mEq/L Carbon Dioxide 24 23 (21-32) mEq/L Anion Gap 11.4 9.5 (5-15) BUN 7 6 L (7-18) mg/dL Creatinine 0.8 0.6 (0.55-1.02) mg/dL Est Cr Clr Drug Dosing 69.13 92.17 mL/min Estimated GFR (MDRD) > 60 > 60 (>60) mL/min BUN/Creatinine Ratio 8.8 L 10.0 L (14-18) Glucose 107 H 84 (74-106) mg/dL Calcium 7.2 L 7.5 L (8.5-10.1) mg/dL Magnesium 1.7 L (1.8-2.4) mg/dl C-Reactive Protein < 0.2 (<1.0) mg/dL RANDI Results - Last 24 hrs: Microbiology 09/15/17 13:00 Aerobic Blood Culture - Preliminary Blood - Venous - Lab Draw NO GROWTH AFTER 1 DAY Anaerobic Blood Culture - Preliminary NO GROWTH AFTER 1 DAY 09/15/17 12:50 Aerobic Blood Culture - Preliminary Blood - Venous NO GROWTH AFTER 1 DAY Anaerobic Blood Culture - Preliminary NO GROWTH AFTER 1 DAY Med Orders - Current: Current Medications Acetaminophen (Tylenol) 650 mg PO Q4H PRN PRN Reason: Pain (Mild 1-3)/fever Hydrocodone Bitart/Acetaminophen ([place] 325-5 Mg) 1 tab PO Q4H PRN PRN Reason: Pain (moderate 4-6) Albuterol/Ipratropium (Duoneb 3.0-0.5 Mg/3 Ml) 3 ml NEB Q4H PRN PRN Reason: Shortness Of Breath/wheezing Buspirone HCl (Buspar) 10 mg PO TID COUNTS INCLUDE 234 BEDS AT [facility] Last Admin: 09/17/17 08:27 Dose: 10 mg Calcium Carbonate/Glycine (Tums) 1,000 mg PO Q12H COUNTS INCLUDE 234 BEDS AT THE [facility] Stop: 09/17/17 21:01 Last Admin: 09/17/17 08:27 Dose: 1,000 mg Fluoxetine HCl (Prozac) 60 mg PO DAILY COUNTS INCLUDE 234 BEDS AT THE [facility] Last Admin: 09/17/17 08:27 Dose: 60 mg Hydralazine HCl (Apresoline) 20 mg IVPUSH Q4H PRN PRN Reason: Hypertension Hydromorphone HCl (Dilaudid) 0.25 mg IVPUSH Q2H PRN PRN Reason: Pain (severe 7-10) Hydroxyzine HCl (Atarax) 25 mg PO DAILY COUNTS INCLUDE 234 BEDS AT THE [facility] Last Admin: 09/17/17 08:27 Dose: 25 mg Promethazine HCl 12.5 mg/ (Sodium Chloride) 50.5 mls @ 100 mls/hr IV Q6H PRN PRN Reason: Nausea/Vomiting Sodium Chloride (Normal Saline) 1,000 mls @ 100 [facility]ls[id number] Last Admin: 09/17/17 05:42 Dose: 100 mls/hr Lorazepam (Ativan) 2 mg IVPUSH Q4H PRN PRN Reason: Seizures Lorazepam (Ativan) 1 mg IV Q6H PRN PRN Reason: Anxiety Magnesium Sulfate (Pharmacy To Dose - Magnesium Replacement) 1 dose .XX ASDIRECTED COUNTS INCLUDE 234 BEDS AT THE [facility] Metoprolol Tartrate (Lopressor) 5 mg IVPUSH Q4H PRN PRN Reason: Tachycardia Ondansetron HCl (Zofran) 4 mg IV Q6H PRN PRN Reason: Nausea/Vomiting Potassium Chloride (Pharmacy To Dose - Potassium Replacement) 1 dose .XX ASDIRECTED COUNTS INCLUDE 234 BEDS AT THE [facility] Sodium Chloride (Saline Flush) 10 ml FLUSH ASDIRECTED PRN PRN Reason: Keep Vein Open Last Admin: 09/15/17 12:45 Dose: 10 ml Temazepam (Restoril) 7.5 mg PO BEDTIME PRN PRN Reason: Sleep Discontinued Medications Sodium Chloride (Normal Saline) 1,000 mls @ 999 mls/hr IV ONETIME ONE Stop: 09/15/17 13:30 Last Admin: 09/15/17 12:44 Dose: 999 mls/hr Potassium Chloride 10 meq/ (Premix) 100 mls @ 100 mls/hr IV ASDIRECTED [facility] Last Admin: 09/15/17 13:26 Dose: 100 mls/hr Sodium Chloride (Normal Saline) 1,000 mls @ 150 mls/hr IV ONETIME ONE Stop: 09/15/17 20:33 Last Admin: 09/15/17 13:57 Dose: 150 mls/hr Potassium Chloride 10 meq/ (Premix) 100 mls @ 100 mls/hr IV NOW STA Stop: 09/15/17 16:51 Last Admin: 09/15/17 16:03 Dose: 100 mls/hr Magnesium Sulfate 2 gm/ Premix 50 mls @ 25 mls/hr IV ONETIME ONE Stop: 09/15/17 18:33 Last Admin: 09/15/17 18:03 Dose: 25 mls/hr Potassium Chloride 10 meq/ (Premix) 100 mls @ 100 mls/hr IV Q1H COUNTS INCLUDE 234 BEDS AT THE [facility] Stop: 09/15/17 21:59 Last Admin: 09/15/17 20:01 Dose: Not Given Potassium Chloride 10 meq/ (Premix) 100 mls @ 100 mls/hr IV Q1H COUNTS INCLUDE 234 BEDS AT THE [facility] Stop: 09/15/17 23:59 Last Admin: 09/16/17 01:01 Dose: 100 mls/hr Sodium Chloride (Normal Saline) 500 mls @ 50 mls/hr IV ONETIME ONE Stop: 09/16/17 06:50 Last Admin: 09/15/17 21:07 Dose: 50 mls/hr Magnesium Oxide (Magnesium Oxide) 800 mg PO ONETIME ONE Stop: 09/17/17 08:01 Last Admin: 09/17/17 08:27 Dose: 800 mg Potassium Chloride (Klor-Con M20) 40 meq PO ONETIME ONE Stop: 09/15/17 16:34 Last Admin: 09/15/17 18:02 Dose: 40 meq Potassium Chloride (Klor-Con M20) 40 meq PO Q4H [facility] Stop: 09/16/17 16:01 Last Admin: 09/16/17 15:02 Dose: 40 meq Scopolamine (Transderm-Scop) 1.5 mg TRDERM Q72H ONE Stop: 09/15/17 17:25 Last Admin: 09/15/17 20:00 Dose: Not Given Scopolamine (Transderm-Scop) 1.5 mg TOP ONETIME ONE Stop: 09/15/17 17:27 Last Admin: 09/15/17 19:38 Dose: Not Given - Exam General: Reports: Alert, Oriented, Cooperative, No Acute Distress HEENT: Reports: Pupils Equal, Pupils Reactive, EOMI, Mucous Membr. Moist/[place] Neck: Reports: Supple, Trachea Midline, No JVD, No Thyromegaly Lungs: Reports: Clear to Auscultation, Normal Respiratory Effort Cardiovascular: Reports: Regular Rate, Regular Rhythm GI/Abdominal Exam: Normal Bowel Sounds, Soft, Non-Tender, No Organomegaly, No Distention, No Abnormal Bruit, No Mass (Female) Exam: Deferred Rectal (Female) Exam: Deferred Back Exam: Reports: Normal Inspection, Full Range of Motion Extremities: Normal Inspection, Normal Range of Motion, Non-Tender, No Pedal Edema, Normal Capillary Refill Skin: Reports: Warm, Dry, Intact Neurological: Reports: No New Focal Deficit Psy/Mental Status: Reports: Alert, Normal Affect, Normal Mood
== END 2017-09-17 09:47 | disposition home or self-care (01) | DRG 641 ==
LOC: JD.ED 11:59 → JD.MS 16:21
PROVIDERS: ADMIT Internal Medicine; ATTEND Internal Medicine
DX: E87.6 Hypokalemia (principal); E87.1 Hypo-osmolality and hyponatremia; I45.81 Long QT syndrome; E86.0 Dehydration; R07.89 Other chest pain; E83.42 Hypomagnesemia; A08.4 Viral intestinal infection, unspecified; A05.9 Bacterial foodborne intoxication, unspecified; E83.51 Hypocalcemia; M06.9 Rheumatoid arthritis, unspecified; G43.909 Migraine, unspecified, not intractable, without status migrainosus; F41.9 Anxiety disorder, unspecified; F32.9 Major depressive disorder, single episode, unspecified; R01.1 Cardiac murmur, unspecified; Z87.442 Personal history of urinary calculi; Z88.0 Allergy status to penicillin; Z79.899 Other long term (current) drug therapy
CPT/HCPCS: 36415; 71045; 71045-26; 80048; 80053; 80306; 81001; 83605; 83690; 83735; 84484; 84702; 85025; 85379; 85610; 85730; 86140; 87040; 87086; 93005; 93010; 96361; 96365; 99284; 99285-25; A9270-GY; J3475; J3480; J7040; J7050